=== PATIENT | female | born 1975 | race Caucasian/White ===

== ENCOUNTER 2017-02-24 11:16 | Emergency (ER) | payer BC, MEDICAID ==
[~2017-02-24] VITALS: Ht 175.3 cm; Wt 114.3 kg
[2017-02-24 11:20] VITALS: BP 151/86
[2017-02-24] MEDS ORDERED: IBUPROFEN 600 MG TABLET PO ONE ×2 (12:23→12:30)
== END 2017-02-24 12:29 | disposition home or self-care (01) ==
LOC: ER 11:23
DX: M54.5 Low back pain (principal); I10 Essential (primary) hypertension
CPT/HCPCS: 99282; A4606; Z7610